=== PATIENT | female | born 1940 | race Caucasian/White ===

== ENCOUNTER 2018-09-05 00:33 | Emergency (ER) | payer MEDICARE, BC, OTHER ==
[~2018-09-05] VITALS: Ht 152.4 cm; Wt 43.0 kg
[2018-09-05] MEDS ORDERED: BACITRACIN ZINC OINT UDPKT TOP ONE (01:45)
[2018-09-05] MEDS ORDERED: LIDOCAINE HCL/PF 1% 10 MG/ML 5ML VIAL IJ ONE (01:45)
[2018-09-05 02:10] LABS: EOSINOPHILS % 3.7 % (0.0-5.0); HEMOGLOBIN. 15.2 g/dL (12.0-16.0); LYMPHOCYTES % 19.9 % (20.0-50.0); MEAN CORPUSCULAR HEMOGLOBIN 28.2 pg (28.0-32.0); MEAN CORPUSCULAR VOLUME 83.7 fL (81.0-99.0); MEAN PLATELET VOLUME 7.2 fl (7.4-10.4); MONOCYTES % 9.5 % (2.0-8.0); NEUTROPHILS % 65.9 % (40.0-76.0); PLATELET 319 x1000/uL (130-400); RED BLOOD CELL COUNT 5.37 mill/uL (4.2-5.4); RED CELL DISTRIBUTION WIDTH 14.5 % (11.6-14.6)
[2018-09-05 02:16] LABS: CHLORIDE 102 mEq/L (98-107)
[2018-09-05 07:35] VITALS: BP 111/68
== END 2018-09-05 08:18 | disposition home or self-care (01) ==
LOC: ER 00:33
DX: S01.81XA Laceration without foreign body of other part of head, initial encounter (principal); W06.XXXA Fall from bed, initial encounter; Y93.89 Activity, other specified; Y92.092 Bedroom in other non-institutional residence as the place of occurrence of the external cause; R94.31 Abnormal electrocardiogram [ECG] [EKG]
CPT/HCPCS: 36415; 70450; 71045; 80048; 84484; 85025; 93005; 99284; J3490

== ENCOUNTER 2019-02-01 15:14 | Emergency (ER) | payer MEDICARE, BC, OTHER ==
[~2019-02-01] VITALS: Ht 154.9 cm; Wt 46.0 kg
[2019-02-01] MEDS ORDERED: BACITRACIN ZINC OINT UDPKT TOP ONE (16:00)
[2019-02-01] MEDS ORDERED: HALOPERIDOL LACTATE 5MG/ML VIAL IM ONE (16:00)
[2019-02-01] MEDS ORDERED: BACITRACIN 15GM TUBE TOP NR (17:30)
[2019-02-01 21:30] VITALS: BP 107/61
== END 2019-02-01 21:30 | disposition home or self-care (01) ==
LOC: ER 15:14
DX: S00.81XA Abrasion of other part of head, initial encounter (principal); D64.9 Anemia, unspecified; I10 Essential (primary) hypertension; F03.90 Unspecified dementia, unspecified severity, without behavioral disturbance, psychotic disturbance, mood disturbance, and anxiety; X58.XXXA Exposure to other specified factors, initial encounter; Y93.89 Activity, other specified; Y92.89 Other specified places as the place of occurrence of the external cause; Y99.8 Other external cause status; Z88.0 Allergy status to penicillin; Z88.2 Allergy status to sulfonamides; Z88.5 Allergy status to narcotic agent
CPT/HCPCS: 99284